=== PATIENT | male | born 1955 | race African-American/Black ===

== ENCOUNTER 2022-11-23 19:23 | Emergency (ER) | payer OTHER ==
[~2022-11-23] VITALS: Ht 193 cm; Wt 86.0 kg
[~2022-11-23 19:23] MED LIST: ALBUTEROL
[2022-11-23 19:26] VITALS: BP 132/82; PULSE 111; RESP 20; TEMP 98.7; O2SAT 98
== END 2022-11-24 01:21 | disposition left against medical advice (07) ==
LOC: ER 19:23 → CANBEDREQ 11-24 20:27
DX: Z53.21 Procedure and treatment not carried out due to patient leaving prior to being seen by health care provider (principal)
CPT/HCPCS: 99281; 99283